=== PATIENT | female | born 1965 | race Caucasian/White ===

== ENCOUNTER 2024-07-17 07:46 | Day surgery (SDC) | payer OTHER ==
[~2024-07-17] VITALS: Ht 160 cm; Wt 58.3 kg
[~2024-07-17 07:46] MED LIST: LR 1,000 ML IV SCH; Ondansetron 4 MG/2 ML VIAL IV PRN
[2024-07-17 08:03] VITALS: BP 104/72; PULSE 69; TEMP 97.7
[2024-07-17] MEDS ORDERED: TRELEGY ELLIPT1 EAC1 IH (08:07)
[2024-07-17] MEDS ORDERED: ZYRTEC 10MG10 MG PO (08:08)
[2024-07-17] MEDS ORDERED: FLONASE NASAL S16 GM NS (08:08)
[2024-07-17] MEDS ORDERED: PRILOSEC 20MG20 MG PO (08:08)
[2024-07-17] MEDS ORDERED: MOTRIN 800800 MG/TAB PO (08:09)
--- NOTE | 2024-07-17 08:25 | NUR ---
The patient ambulated back to [place] [facility] independently using a steady gait and appeared to tolerate the activity well. Vital signs obtained. Consent signed. 20G IV started in right hand with one stick, LR infusing without difficulty. Assessment completed. Home medications reconcilled. Warm blanket provided. The patient requested to lock her wallet in the cabinet in the room and was given the milian to keep on herself during the procedure. Denies any further needs at this time.
[2024-07-17] MEDS ORDERED: Lidocaine PF 2% (20 MG/ML) 5 ML VIAL ONE (08:55)
[2024-07-17 09:20] VITALS: BP 101/68; PULSE 67; TEMP 97.6
[2024-07-17 09:25] VITALS: BP 97/74; PULSE 67
[2024-07-17 09:30] VITALS: BP 101/75; PULSE 69
--- NOTE | 2024-07-17 13:02 | NUR ---
0920- PT BACK FROM ENDO PROCEDURE TO [facility] 6 VIA CART. PT AMBULATED FROM CART TO RECLINER WITH ASSISTANCE. MONITORS AND ALARMS SET. REPORT RECIEVED FROM [facility]. PT DID NOT WANT ANYTHIN TO EAT OR DRINK. CALL LIGHT WITH IN REACH. NO OTHER NEEDS AT THIS TIME. 0930- PT RESTING IN RECLINER. NO NEEDS AT THIS TIME. 0945- DR. HIGH TALKING TO PT. NOT HERE YET. 1010- DISCHARGE PAPERWORK GIVEN TO PT AND . ASKED IF WANTED TO SPEAK TO DR. HIGH. HE SAID NO. [id number]- PT TRANSFERRED TO WHEELCHAIR AND TAKEN OUT BY NURSES AID.
== END 2024-07-17 10:20 | disposition home or self-care (01) ==
LOC: SDCO 07:46
DX: D12.8 Benign neoplasm of rectum (principal); K63.5 Polyp of colon; K57.31 Diverticulosis of large intestine without perforation or abscess with bleeding; F17.210 Nicotine dependence, cigarettes, uncomplicated
CPT/HCPCS: J2704; J7120